=== PATIENT | female | born 1990 | race Two or more races ===

== ENCOUNTER 2021-07-26 18:06 | Emergency (ER) | payer OTHER ==
[~2021-07-26] VITALS: Ht 165.1 cm; Wt 97.1 kg
--- NOTE | 2021-07-26 18:22 | NUR ---
PATIENT BIBS C/O SHARP LOWER ABDOMINAL PAIN ON AND OFF X3DAYS DENIES NAUSEA AND VOMITING. A/O X4. VSS. SAFETY PRECAUTIONS IN PLACE. AWAITING TO BE SEEN BY
--- NOTE | 2021-07-26 18:25 | NUR ---
UA COLLECTED AND SENT TO LAB
--- NOTE | 2021-07-26 18:30 | NUR ---
SEEN BY DR RANDLE
--- NOTE | 2021-07-26 18:55 | NUR ---
US TECH AT BEDSIDE
[2021-07-26 19:09] VITALS: BP 114/56
--- NOTE | 2021-07-26 19:34 | NUR ---
LAB AT BEDSIDE
[2021-07-26 19:50] LABS: BASOPHILS % (AUTO) 0.6 % (0.0-2.0); EOSINOPHILS % (AUTO) 1.7 % (0.0-6.0); HEMATOCRIT 35 % (33-45); HEMOGLOBIN 11.5 g/dL (11.5-14.8); LYMPHOCYTES # (AUTO) 2.2 K/uL (0.8-4.8); LYMPHOCYTES % (AUTO) 26.9 % (20.0-44.0); MEAN CORPUSCULAR HGB CONC 34 g/dl (31.0-36.0); MEAN CORPUSCULAR VOLUME 88 fL (82-100); MONOCYTES # (AUTO) 0.4 K/uL (0.1-1.30); MONOCYTES % (AUTO) 5.3 % (2.0-12.0); NEUTROPHILS # (AUTO) 5.5 K/uL (1.8-8.9); NEUTROPHILS % (AUTO) 65.5 % (43.0-81.0); PLATELET COUNT (AUTO) 265 K/uL (150-450); RED BLOOD CELL COUNT(AUTO) 3.94 MIL/uL (4.0-5.2); WHITE BLOOD COUNT (AUTO) 8.4 K/uL (4.3-11.0)
[2021-07-26 20:03] LABS: CALCIUM, SERUM 8.9 mg/dL (8.5-10.1); POTASSIUM 3.5 mmol/L (3.5-5.1)
[2021-07-26 20:30] LABS: ALBUMIN 3.5 g/dL (3.4-5.0); BILIRUBIN,DIRECT 0.1 mg/dL (0.0-0.2); BILIRUBIN,TOTAL 0.3 mg/dL (0.2-1.0); TOTAL PROTEIN, SERUM 7.2 g/dL (6.4-8.2)
--- NOTE | 2021-07-26 20:38 | NUR ---
URINE COLLECTED AGAIN AND SENT TO LAB
--- NOTE | 2021-07-26 20:46 | NUR ---
J LUIS [phone]
[2021-07-26 21:16] LABS: BILIRUBIN,URINE NEGATIVE (NEGATIVE); COLOR,URINE YELLOW (YELLOW); LEUKOCYTE ESTERASE ,URINE SMALL (NEGATIVE); NITRITE, URINE POSITIVE (NEGATIVE); PROTEIN,URINE NEGATIVE (NEGATIVE); UGLUCOSE NEGATIVE (NEGATIVE); UROBILINOGEN,URINE 0.2 EU/dL (0.2)
[2021-07-26 21:19] LABS: BACTERIA,URINE Many /HPF (None Seen); RBC,URINE 0-2 /HPF (0-2); SQUAMOUS EPITHELIAL CELL,UR Many /HPF (None Seen)
[2021-07-26] MEDS ORDERED: CEPH500T PO (21:38)
--- NOTE | 2021-07-26 22:19 | NUR ---
Patient discharged to home in stable condition. Written and verbal after care instructions given. Patient verbalizes understanding of instruction.
--- NOTE | 2021-07-26 22:20 | NUR ---
Guy el in [facility] - 07/26/21 at 2220 by NAMAN Patient discharged to home in stable condition. Written and verbal after care instructions given. Patient verbalizes understanding of instruction.
== END 2021-07-26 22:20 | disposition home or self-care (01) ==
LOC: ER 18:13
DX: O23.40 Unspecified infection of urinary tract in pregnancy, unspecified trimester (principal); O02.81 Inappropriate change in quantitative human chorionic gonadotropin (hCG) in early pregnancy; N39.0 Urinary tract infection, site not specified; Z3A.00 Weeks of gestation of pregnancy not specified; Z60.2 Problems related to living alone; Z79.899 Other long term (current) drug therapy
CPT/HCPCS: 36415; 76805-TC; 80048-TC; 80076-TC; 81001; 84702-TC; 84703-TC; 85025-TC; 85730-TC; 87086-TC; 87186-TC